=== PATIENT | female | born 1970 | race Caucasian/White ===

== ENCOUNTER 2017-01-12 09:14 | Emergency (ER) | payer BC ==
[2017-01-12 09:51] VITALS: BP 130/70
--- NOTE | 2017-01-12 09:52 | UC ---
Respiratory Complaint HPI - HPI Summary HPI Summary: 46 year old female presents with chest and cough congestion. - History of Current Complaint Chief Complaint: UCRespiratory Stated Complaint: CHEST CONGESTION, COUGH Time Seen by Provider: 01/12/17 09:52 Hx Obtained From: Patient Hx Last Menstrual Period: 05/23/14 Onset/Duration: Sudden Onset Severity Initially: Moderate Severity Currently: Moderate - Allergies/Home Medications Allergies/Adverse Reactions: Allergies Allergy/AdvReac Type Severity Reaction Status Date / Time Progesterone AdvReac Headache Verified 01/12/17 09:46 Home Medications: Home Medications Albuterol 2.5MG/3ML (0.083%)* [Ventolin 2.5 MG/3 ML NEB.GLEN*] 2.5 mg INH Q6H PRN 01/12/17 [History Confirmed 01/12/17] Albuterol HFA INHALER* [Ventolin HFA Inhaler*] 1 - 2 puff INH Q4H PRN 01/12/17 [ History Confirmed 01/12/17] Dextromethorphan-Guaifenesin [Mucinex Dm Maximum Streng 60-1200 mg] 1 tab PO Q12H PRN 01/12/17 [History Confirmed 01/12/17] Fluticasone NASAL SPRAY 50MCG* [Flonase NASAL SPRAY 50MCG*] 2 spray BOTH NARES DAILY PRN 01/12/17 [History Confirmed 01/12/17] Naproxen Sodium [Naproxen Sodium 220 mg] 440 mg PO Q12H PRN 01/12/17 [History Confirmed 01/12/17] PMH/Surg Hx/FS Hx/Imm Hx Previously Healthy: Yes - Surgical History Surgical History: Yes Surgery Procedure, Year, and Place: Hysterectomy, 2014, [place]; uterine polyps removed oct, 2013. LT OVARIAN CYST REMOVED 1992 - Social History Alcohol Use: None Substance Use Type: None Smoking Status (MU): Never Smoked Tobacco - Immunization History Most Recent Influenza Vaccination: November 2016 Review of Systems Constitutional: Negative Skin: Negative Eyes: Negative ENT: Sore Throat, Nasal Discharge, Sinus Congestion, Sinus Pain/Tenderness Respiratory: Cough Cardiovascular: Negative Gastrointestinal: Negative Genitourinary: Negative Motor: Negative Neurovascular: Negative Musculoskeletal: Negative Neurological: Negative Psychological: Negative All Other Systems Reviewed And Are Negative: Yes Physical Exam Triage Information Reviewed: Yes Vital Signs: Initial Vital Signs Temp 36.8 C 11/25/17 09:44 Pulse 78 01/12/17 09:44 Resp 16 01/12/17 09:44 BP 130/70 01/12/17 09:44 Pulse Ox 99 01/12/17 09:44 Vital Signs Reviewed: Yes Eye Exam: Normal ENT: Positive: Pharyngeal erythema, Nasal congestion, Nasal drainage Dental Exam: Normal Neck exam: Normal Neck: Positive: 1 Respiratory: Positive: Wheezing Cardiovascular Exam: Normal Abdominal Exam: Normal Musculoskeletal Exam: Normal Neurological Exam: Normal Psychological Exam: Normal Skin Exam: Normal UC Diagnostic Evaluation - Laboratory O2 Sat by Pulse Oximetry: 99 Respiratory Course/Dx - Differential Dx/Diagnosis Provider Diagnoses: chest congestion. cough Discharge - Discharge Plan Condition: Stable Disposition: HOME Prescriptions: Azithromyxin DANAE (NF) [Z-Danae (Zithromax) 250 mg tabs #6] 2 tab PO .TODAY, THEN 1 DAILY #6 tab LoraTADine TAB(NF) [Claritin 10 MG TAB(NF)] 10 mg PO DAILY #30 tab Methylprednisolone [Medrol Dosepak 4 MG*] 4 mg PO .SEE DANAE INSTRUCTION #21 tab Patient Education Materials: Allergic Rhinitis (ED) Referrals: Steven Winter MD [Primary Care Provider] -
== END 2017-01-12 10:12 | disposition home or self-care (01) ==
LOC: UCCORT 09:14
DX: R09.89 Other specified symptoms and signs involving the circulatory and respiratory systems (principal); R05 Cough
CPT/HCPCS: 99212; G0463

== ENCOUNTER 2018-01-14 18:27 | Emergency (ER) | payer BC, OTHER ==
[2018-01-14 20:38] VITALS: BP 118/81
--- NOTE | 2018-01-14 20:47 | UC ---
Eye Complaint HPI - HPI Summary HPI Summary: Patient presents to urgent care stating yesterday she used a new eye liner. Patient states fairly shortly after using it she developed some swelling of her lower lids. Patient states her eyelid became irritated. Patient has been applying various different physes Visine drops as well as cool compresses. Patient states temporally her eyes feel good but denies any getting more red. Patient states she's had a little yellow discharge. Patient without any other complaints. States her eyes burn. Patient states her vision is always bad little chronic condition that she is followed at doctor earlier. Patient states the irritated her vision is worse. Patient does not wear contact lenses. Patient does not have a foreign body sensation but feels they are a little bit irritated. Patient denies nausea or vomiting. Patient denies headache, sinus congestion, ear pain. Patient states she was just concerned that her eyes are so really didn't burned want to get checked tonight. Patient states she is not . Patient's medications reviewed this visit. - History of Current Complaint Chief Complaint: UCEye Stated Complaint: BILATERAL EYE IRRITATION Time Seen by Provider: 01/14/18 20:46 Hx Obtained From: Patient Hx Last Menstrual Period: 05/23/14 ?: No Severity Initially: Mild Severity Currently: Mild Pain Intensity: 4 - Allergies/Home Medications Allergies/Adverse Reactions: Allergies Allergy/AdvReac Type Severity Reaction Status Date / Time progesterone Allergy Headache Verified 01/14/18 20:39 Home Medications: Home Medications Levothyroxine TAB* [Synthroid TAB*] 25 mcg PO DAILY 01/14/18 [History Confirmed 01/14/18] PMH/Surg Hx/FS Hx/Imm Hx Previously Healthy: Yes - Surgical History Surgical History: Yes Surgery Procedure, Year, and Place: Hysterectomy, 2014, [place]; uterine polyps removed oct, 2013. LT OVARIAN CYST REMOVED 1992 - Family History Known Family History: Positive: Non-Contributory - Social History Occupation: Employed Full-time Lives: With Family Alcohol Use: None Substance Use Type: None Smoking Status (MU): Never Smoked Tobacco - Immunization History Most Recent Influenza Vaccination: November 2016 Review of Systems All Other Systems Reviewed And Are Negative: Yes Eyes: Positive: Drainage, Eye Redness Physical Exam - Summary Physical Exam Summary: Vital Signs Reviewed: Yes A+Ox3, no distress Eyes: LYLA. EOM intact and full, no photophobia, + inflammed conjunctiva, diffuse erythema, crisp fundoscopic margins lower lids b/l mild erythema and edema no crepitus. ENT: Hearing grossly normal TM x 2 clear, mmoist, uvula midline, no exudate, no erythema Neck: Positive: Supple Respiratory: Positive: No respiratory distress, No accessory muscle use + CTA throughout no w/r Cardiovascular: RRR nl s1, s2 no m/r CBT <2 sec abd soft + BS nt/nd no guarding, no distension Musculoskeletal Exam: COX x 4 without difficulty Strength Intact, ROM Intact Neurological: Positive: Alert, + sensation throughout Psychological: Positive: Normal Response To Family Skin: Positive: no rash, no ecchymosis Triage Information Reviewed: Yes Vital Signs: Initial Vital Signs Temp 97.1 F 01/14/18 20:35 Pulse 77 01/14/18 20:35 Resp 16 01/14/18 20:35 BP 118/81 01/14/18 20:35 Pulse Ox 100 01/14/18 20:35 Eye Complaint Course/Dx - Course Course Of Treatment: Patient with inflamed conjunctiva bilaterally. Patient without photophobia. Patient states she's also got some lower eyelid edema. Symptoms all started following use of. 100 yesterday. Patient with bilateral has applied eyedrops and has been applying cool packs. Patient states she's got a chronic eye condition for which she is followed doctor earlier this. Patient does not use eyedrops for this condition. On exam patient with diffusely injected eyes. Patient does have some yellow discharge medial canthus bilaterally. Patient without any photophobia. Patient does have mild edema and inflammation of her lower lids bilaterally. We'll give patient a 5 day course of prednisone. We'll start patient on Polytrim. Low suspicion for infectious process however concern the patient has irritated a protective covering of the conjunctiva and given her underlying process we'll start Polytrim. Patient started to contact Dr. henning was office for visit tomorrow. Patient comfortable in agreement with plan. Return precautions discussed.` - Differential Dx/Diagnosis Provider Diagnosis: Conjunctivitis, Contact dermatitis Discharge - Sign-Out/Discharge Documenting (check all that apply): Patient Departure All imaging exams completed and their final reports reviewed: No Studies - Discharge Plan Condition: Stable Disposition: HOME Prescriptions: predniSONE TAB* [Deltasone 20 MG TAB*] 20 mg PO DAILY #4 tab Patient Education Materials: Conjunctivitis (ED) Referrals: Steven Winter MD [Primary Care Provider] - Steven Perkins MD [Medical Doctor] - As Soon As Possible (Call in the morning to schedule an appointment tomorrow) Additional Instructions: - Take prednisone once daily as prescribed for a total of 5 days - Use eye drops as prescribed - 2 drops to each eye every 8 hours for 5 days - okay to apply cool, wet soaks to your eyes for 10 min 2-3 times a day - try to to rub or itch your eyes - Contact Dr. Perkins's office in the morning to schedule a follow-up appointment tomorrow - if you develop pain, fever, facial swelling, difficulty breathing, hives or ANY other concern it is recommended you to the emergency department for further evaluation - Billing Disposition and Condition Condition: STABLE Disposition: Home
[2018-01-14] MEDS ORDERED: predniSONE TAB* 20 MG PO ONE (20:59)
[2018-01-14] MEDS ORDERED: Polymyx/Trimethoprim OPTH* 10 ML BTL BOTH EYES ONE (20:59)
== END 2018-01-14 21:15 | disposition home or self-care (01) ==
LOC: UCCORT 18:27
DX: H10.9 Unspecified conjunctivitis (principal); L25.0 Unspecified contact dermatitis due to cosmetics
CPT/HCPCS: 99212; G0463; J7512

== ENCOUNTER 2018-08-03 20:29 | Emergency (ER) | payer BC, OTHER ==
[2018-08-03 20:44] VITALS: BP 149/80
--- NOTE | 2018-08-03 20:56 | UC ---
Throat Pain/Nasal Polo HPI - HPI Summary HPI Summary: eposed to strep, has sore throat and would like a strep test. - History of Current Complaint Chief Complaint: UCGeneralIllness Stated Complaint: THROAT COMPLAINT Time Seen by Provider: 08/03/18 20:55 Hx Obtained From: Patient Hx Last Menstrual Period: 05/23/14 ?: No Onset/Duration: Sudden Onset, Lasting Days - 2 Severity: Moderate Pain Intensity: 6 Associated Signs & Symptoms: Positive: Dysphagia - Allergies/Home Medications Allergies/Adverse Reactions: Allergies Allergy/AdvReac Type Severity Reaction Status Date / Time progesterone Allergy Headache Verified 08/03/18 20:44 PMH/Surg Hx/FS Hx/Imm Hx Previously Healthy: Yes - Surgical History Surgical History: Yes Surgery Procedure, Year, and Place: Hysterectomy, 2014, [place]; uterine polyps removed oct, 2013. LT OVARIAN CYST REMOVED 1992 - Family History Known Family History: Positive: Hypertension Negative: Non-Contributory - Social History Alcohol Use: None Substance Use Type: None Smoking Status (MU): Never Smoked Tobacco - Immunization History Most Recent Influenza Vaccination: November 2016 Review of Systems All Other Systems Reviewed And Are Negative: Yes ENT: Positive: Sore Throat Is Patient Immunocompromised?: No Physical Exam Triage Information Reviewed: Yes Appearance: Well-Appearing, Well-Nourished, Pain Distress Vital Signs: Initial Vital Signs Temp 99.3 F 08/03/18 20:42 Pulse 99 08/03/18 20:42 Resp 18 08/03/18 20:42 BP 149/80 08/03/18 20:42 Pulse Ox 99 08/03/18 20:42 Vital Signs Reviewed: Yes Eye Exam: Normal ENT: Positive: Pharyngeal erythema, TM bulging, Tonsillar swelling, Tonsillar exudate Dental Exam: Normal Neck exam: Normal Respiratory Exam: Normal Cardiovascular Exam: Normal Abdominal Exam: Normal Musculoskeletal Exam: Normal Neurological Exam: Normal Psychological Exam: Normal Skin Exam: Normal Throat Pain/Nasal Course/Dx - Course Course Of Treatment: hx obtained, exam performed ,meds reviewed, rapid strep was negative but treated based on exposure and clinical presentation - Differential Dx/Diagnosis Differential Diagnosis/HQI/PQRI: Pharyngitis, Sinusitis, URI Provider Diagnosis: Pharyngitis Discharge - Sign-Out/Discharge Documenting (check all that apply): Patient Departure All imaging exams completed and their final reports reviewed: No Studies - Discharge Plan Condition: Stable Disposition: HOME Prescriptions: Amoxicillin PO (*) [Amoxicillin 500 MG CAP*] 500 mg PO Q12H #20 cap Patient Education Materials: Pharyngitis (ED) Referrals: Steven Winter MD [Primary Care Provider] - Additional Instructions: 1. gargle with salt water, and get plenty of rest 2. Ibuprofen 400 -600 mg every 4-6 hours 3. Take the antibiotic as prescribed. 4. Follow up if not improving - Billing Disposition and Condition Condition: STABLE Disposition: Home
== END 2018-08-03 21:26 | disposition home or self-care (01) ==
LOC: UCCORT 20:29
DX: J02.9 Acute pharyngitis, unspecified (principal); Z20.828 Contact with and (suspected) exposure to other viral communicable diseases
CPT/HCPCS: 87651; 99212; G0463

== ENCOUNTER 2019-02-25 16:55 | Emergency (ER) | payer BC, OTHER ==
[2019-02-25 18:32] VITALS: BP 125/89
--- NOTE | 2019-02-25 19:00 | UC ---
Upper Extremity HPI - HPI Summary HPI Summary: red streak apeared on the left forearm saturday, now with resolving bruise. achy bruised feeling moving up the arm. patient with herniated disk in c5-7, which she is receiving pt for. - History of Current Complaint Chief Complaint: UCUpperExtremity Stated Complaint: LEFT ARM COMPLAINT Time Seen by Provider: 02/25/19 18:16 Hx Obtained From: Patient Hx Last Menstrual Period: 05/23/14 ?: No Onset/Duration: Sudden Onset, Lasting Days Severity Initially: Mild Severity Currently: Mild Pain Intensity: 3 Location Of Pain: Is Discrete @ - inner aspect of left arm Character: Aching Associated Signs And Symptoms: Positive: Bruising - small old bruise - Allergies/Home Medications Allergies/Adverse Reactions: Allergies Allergy/AdvReac Type Severity Reaction Status Date / Time progesterone Allergy Headache Verified 02/25/19 18:32 PMH/Surg Hx/FS Hx/Imm Hx Previously Healthy: Yes - Surgical History Surgical History: Yes Surgery Procedure, Year, and Place: Hysterectomy, 2014, [place]; uterine polyps removed oct, 2013. LT OVARIAN CYST REMOVED 1992 - Family History Known Family History: Positive: Hypertension Negative: Non-Contributory - Social History Alcohol Use: None Substance Use Type: None Smoking Status (MU): Never Smoked Tobacco - Immunization History Most Recent Influenza Vaccination: November 2016 Review of Systems All Other Systems Reviewed And Are Negative: Yes Skin: Positive: Bruising - small round yellow bruise Musculoskeletal: Positive: Myalgia Neurological: Positive: Paresthesia Is Patient Immunocompromised?: No Physical Exam Triage Information Reviewed: Yes Appearance: Well-Appearing, Well-Nourished, Pain Distress Vital Signs: Initial Vital Signs Temp 98 F 02/25/19 18:22 Pulse 80 02/25/19 18:22 Resp 14 02/25/19 18:22 BP 125/89 02/25/19 18:22 Pulse Ox 100 02/25/19 18:22 Vital Signs Reviewed: Yes Eye Exam: Normal ENT Exam: Normal Respiratory Exam: Normal Cardiovascular Exam: Normal Abdominal Exam: Normal Bowel Sounds: Positive: Present Musculoskeletal: Positive: ROM Intact - extension of elbow is painful Neurological Exam: Normal Skin Exam: Normal - no redness, old bruise present, otherwise no rashes or lesions or redness Upper Extremity Course/Dx - Course Course Of Treatment: hx obtained, exam performed ,meds reviewed, no injury, trauma, the patient states the pain has been improving but moving up the arm. anti inflammatory given and follow up if not improving,. - Differential Dx/Diagnosis Provider Diagnosis: Arm paresthesia, left Discharge ED - Sign-Out/Discharge Documenting (check all that apply): Patient Departure All imaging exams completed and their final reports reviewed: No Studies - Discharge Plan Condition: Stable Disposition: HOME Prescriptions: predniSONE [Prednisone 20 MG TAB] 20 mg PO DAILY #9 tablet Patient Education Materials: Paresthesia (ED) Referrals: Steven Winter MD [Primary Care Provider] - Additional Instructions: 1. take the prednisone as prescribed. 2. Take 1-2 naproxen tabs every 12 hours or 400- 600 mg of ibuprofen every 4-6 hours 3. If not improving over the course of treatment or symtpoms are getting worse follow up. - Billing Disposition and Condition Condition: STABLE Disposition: Home - Attestation Statements Provider Attestation: I was available for consult. This patient was seen by the TERESE. The patient was not presented to, seen by, or examined by me. -Salvador
== END 2019-02-25 18:59 | disposition home or self-care (01) ==
LOC: UCCORT 16:55
DX: R20.2 Paresthesia of skin (principal); Z88.8 Allergy status to other drugs, medicaments and biological substances
CPT/HCPCS: 99212; G0463